=== PATIENT | female | born 1990 | race Two or more races ===

== ENCOUNTER 2024-01-06 17:36 | Emergency (ER) | payer OTHER ==
[~2024-01-06] VITALS: Ht 167.6 cm; Wt 61.2 kg
[2024-01-06 19:43] LABS: HEMATOCRIT 38.7 % (36.0-45.00); HEMOGLOBIN 13.3 g/dL (12.0-15.00); MEAN CELL VOLUME 85.2 fL (80.00-100.00); MEAN CORPUSCULAR HEMOGLOBIN 29.3 pg (27.00-32.0); MEAN CORPUSCULAR HGB CONC 34.4 g/dl (32.0-36.0); PLATELET COUNT 271 K/uL (150-450); RED BLOOD COUNT 4.54 M/uL (4.00-6.00); RED CELL DISTRIBUTION WIDTH 13.6 % (11.5-14.5)
[2024-01-06 19:56] LABS: URINE APPEARANCE Cloudy; URINE BILIRRUBIN Negative (NEGATIVE); URINE BLOOD Large; URINE COLOR Yellow; URINE GLUCOSE Negative (NEGATIVE); URINE LEUKOCYTE Small; URINE NITRATE Negative; URINE PROTEIN 30 (NEGATIVE)
[2024-01-06 19:59] LABS: URINE BACTERIA 292.3 uL (0.0-1933); URINE RBC 373.6 uL (0.0-20.8); URINE WBC 63.6 uL (0.0-23.2)
[2024-01-06 20:02] LABS: URINE CAST 0.15 uL (0.0-1.40); URINE KETONE 40 (NEGATIVE)
[2024-01-06 20:14] LABS: ALBUMIN 4.2 gm/dL (3.4-5.0); ALKALINE PHOSPHATASE 68 U/L (50-136); ALT/SGPT 13 U/L (12-78); AMYLASE 40 U/L (25-115); ANION GAP 10 (10.0-20.0); AST/SGOT 16 U/L (15-37); BILIRUBIN TOTAL 0.37 mg/dL (0.3-1.2); BLOOD UREA NITROGEN 8 mg/dL (7-18); BUN CREA RATIO 9 (7.0-25.0); CALCIUM 9.7 mg/dL (8.5-10.1); CARBON DIOXIDE 27 mEq/L (21-32); CHLORIDE 109 mmol/L (98-107); CREATININE SERUM 0.91 mg/dL (0.55-1.02); GFR 71.64; GLOBULINA 3.6 G/DL (2.4-3.5); GLUCOSE FASTING 93 mg/dL (65-100); LIPASE 25 U/L (13-75); OSMOLALITY SERUM 283 MOSM/KG (275-295); POTASSIUM 3.41 mEq/L (3.5-5.1); SODIUM 143 mmol/L (136-145); TOTAL PROTEIN 7.8 gm/dL (6.4-8.2)
[2024-01-06 20:15] LABS: HCG QUANTITATIVE < 1 mUI/mL (1-3)
== END 2024-01-06 21:02 | disposition home or self-care (01) ==
LOC: ER 17:36
PROVIDERS: General Practice
DX: E86.0 Dehydration (principal)